=== PATIENT | male | born 1995 | race Caucasian/White ===

== ENCOUNTER 2024-07-25 18:01 | Emergency (ER) | payer SELFPAY ==
[2024-07-25 18:03] VITALS: BP 143/116
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
[2024-07-25] MEDS: TORADOL 15 MG IV (19:58)
[2024-07-25] MEDS: NICODERM TRANSDERMAL 14 MG TRANSDERM (20:22)
[2024-07-25 22:00] VITALS: BP 134/88
== END 2024-07-25 22:01 | disposition home or self-care (01) ==
LOC: EMR 18:01
PROVIDERS: EMERGENCY PHYSICIAN Emergency Medicine
DX: S20.219A Contusion of unspecified front wall of thorax, initial encounter (principal); V49.40XA Driver injured in collision with unspecified motor vehicles in traffic accident, initial encounter; Y92.410 Unspecified street and highway as the place of occurrence of the external cause; F17.200 Nicotine dependence, unspecified, uncomplicated
CPT/HCPCS: 99283; 96374; 73030; 73090